=== PATIENT | female | born 1955 | race American Indian/Alaskan Native ===

== ENCOUNTER 2017-12-21 22:54 | Emergency (ER) | payer OTHER ==
--- NOTE | 2017-12-22 00:21 | Emergency Department Report ---
ED General Adult HPI - General Chief complaint: High BP Stated complaint: HYPERTENSION Time Seen by Provider: 12/21/17 23:42 Source: patient, EMS Mode of arrival: Ambulatory Limitations: No Limitations - History of Present Illness Initial comments: 62-year-old female with a past medical history of hypertension and CAD/CABG presents to the hospital complains of fluctuating blood pressure 200 week. Prescribed line with her medicationsstates that sometimes her blood pressure is good and other times it is elevated. When is elevated she feels a crawling sensation all over, feels stressed and has some tingling to her fingers and headache. She does not have any of the symptoms currently. Patient has not been here in several years and her blood pressure does managed by [facility]. Last medication adjustment visit was 4 about 4 months ago. She has an appointment scheduled in February. She has not attempted to follow-up since BP has been fluctuating. She denies chest pain or shortness of breath. She is able to list some of her medications but is not accurately able to recall all of her medications or doses - Related Data Home Medications Medication Instructions Recorded Confirmed Last Taken Lisinopril/Hydrochlorothiazide 25 tab PO BID 11/22/12 09/16/14 09/16/14 07:00 [Zestoretic 20-25 mg] 25 mg Atorvastatin Calcium [Lipitor] 40 mg PO QHS 09/16/14 09/16/14 09/15/14 22:00 Famotidine [Pepcid] 20 mg PO BID 09/16/14 09/16/14 09/16/14 09:00 ISOSORBIDE MONOnitrate [Imdur] 30 mg PO DAILY 09/16/14 09/16/14 09/16/14 09:00 Metoprolol [Lopressor] 12.5 mg PO TID 09/16/14 09/16/14 09/16/14 09:00 12.5 mg Previous Rx's Medication Instructions Recorded Last Taken Type Aspirin [Aspirin BABY CHEW TAB] 81 mg PO QDAY #30 tab.chew 09/18/14 Unknown Rx Allergies Allergy/AdvReac Type Severity Reaction Status Date / Time codeine Allergy Vomiting Verified 11/22/12 03:13 ED Review of Systems ROS: Stated complaint: HYPERTENSION Other details as noted in HPI Comment: All other systems reviewed and negative ED Past Medical Hx - Past Medical History Previous Medical History?: Yes Hx Hypertension: Yes Hx Congestive Heart Failure: No Hx Diabetes: No Hx Asthma: No Hx COPD: No Additional medical history: Hiatal hernia, allergic rhinitis - Surgical History Past Surgical History?: Yes Additional Surgical History: heart bypass - Social History Smoking Status: Never Smoker Substance Use Type: None - Medications Home Medications: Home Medications Medication Instructions Recorded Confirmed Last Taken Type Lisinopril/Hydrochlorothiazide 25 tab PO BID 11/22/12 09/16/14 09/16/14 07:00 History [Zestoretic 20-25 mg] 25 mg Atorvastatin Calcium [Lipitor] 40 mg PO QHS 09/16/14 09/16/14 09/15/14 22:00 History Famotidine [Pepcid] 20 mg PO BID 09/16/14 09/16/14 09/16/14 09:00 History ISOSORBIDE MONOnitrate [Imdur] 30 mg PO DAILY 09/16/14 09/16/14 09/16/14 09:00 History Metoprolol [Lopressor] 12.5 mg PO TID 09/16/14 09/16/14 09/16/14 09:00 History 12.5 mg Aspirin [Aspirin BABY CHEW TAB] 81 mg PO QDAY #30 tab.chew 09/18/14 Unknown Rx ED Physical Exam - General Limitations: No Limitations - Other Other exam information: General: No limitations, patient is alert in no acute distress Head exam: Atraumatic, normocephalic Eyes exam: Normal appearance ENT: Moist mucous membrane Neck exam: Normal inspection, full range of motion, no meningismus nontender Respiratory exam: Clear to auscultation bilateral, no wheezes, rales, crackles Cardiovascular: Normal rate and rhythm, normal heart sounds Abdomen: Soft, nondistended, and nontender, with normal bowel sounds, no rebound, or guarding Extremity: Full range of motion normal inspection no deformity Back: Normal Inspection, full range of motion, no tenderness Neurologic: Alert, oriented x3, cranial nerves intact, no motor or sensory deficit Psychiatric: normal affect, normal mood Skin: Warm, dry, intact ED Course Vital Signs 12/22/17 12/22/17 12/22/17 00:00 00:30 01:25 Temperature 98.1 F Pulse Rate 57 L 55 L Respiratory 20 20 20 Rate Blood Pressure 155/72 161/79 [Right] O2 Sat by Pulse 99 98 98 Oximetry ED Medical Decision Making - Lab Data Result diagrams: 12/22/17 00:20 12/22/17 00:20 Lab Results 12/22/17 12/22/17 Range/Units 00:20 00:20 WBC 7.8 (4.5-11.0) K/mm3 RBC 4.16 (3.65-5.03) M/mm3 Hgb 13.4 (10.1-14.3) gm/dl Hct 37.9 (30.3-42.9) % MCV 91 (79-97) fl MCH 32 (28-32) pg MCHC 35 H (30-34) % RDW 14.4 (13.2-15.2) % Plt Count 153 (140-440) K/mm3 Lymph % (Auto) 30.9 (13.4-35.0) % [place] % (Auto) 7.0 (0.0-7.3) % Eos % (Auto) 1.7 (0.0-4.3) % Baso % (Auto) 0.5 (0.0-1.8) % Lymph # 2.4 (1.2-5.4) K/mm3 [place] # 0.5 (0.0-0.8) K/mm3 Eos # 0.1 (0.0-0.4) K/mm3 Baso # 0.0 (0.0-0.1) K/mm3 Seg Neutrophils % 59.9 (40.0-70.0) % Seg Neutrophils # 4.7 (1.8-7.7) K/mm3 Sodium 146 H (137-145) mmol/L Potassium 3.9 (3.6-5.0) mmol/L Chloride 106.5 (98-107) mmol/L Carbon Dioxide 28 (22-30) mmol/L Anion Gap 15 mmol/L BUN 14 (7-17) mg/dL Creatinine 0.8 (0.7-1.2) mg/dL Estimated GFR > 60 ml/min BUN/Creatinine Ratio 18 % Glucose 127 H (65-100) mg/dL Calcium 9.4 (8.4-10.2) mg/dL - Medical Decision Making Patient mildly elevated in the ED Patient asymptomatic Labs unremarkable I had a long Discussion with patient about the point is to follow-up with her doctor for medication adjustment Recommended follow-up with her manager medical at [facility]. Patient thinks she can walk into clinic Also recommended patient to keep a log of her daily BP measurements so that proper adjustments can be made by her doctors. - Differential Diagnosis hypertensive emergency/urgency,renal insufficiency, stress, anxiety Critical Care Time: No Critical care attestation.: If time is entered above; I have spent that time in minutes in the direct care of this critically ill patient, excluding procedure time. ED Disposition Clinical Impression: Chronic hypertension Disposition: - TO HOME OR SELFCARE Is pt being admited?: No Does the pt Need Aspirin: No Condition: Stable Instructions: Hypertension (ED) Additional Instructions: Continue current medication. Follow-up with the [facility] for further medication adjustment. Continue to monitor and record your briana blood pressure readings as discussed.. Return if symptoms worsen as indicated by your discharge instructions Referrals: PRIMARY CARE, [Primary Care Provider] - 2-3 Days (your [facility]) Time of Disposition: 01:38
[2017-12-22 00:35] LABS: Basophils % (Auto) 0.5 % (0.0-1.8); Eosinophils # (Auto) 0.1 K/mm3 (0.0-0.4); Eosinophils % (Auto) 1.7 % (0.0-4.3); Hematocrit 37.9 % (30.3-42.9); Hemoglobin 13.4 gm/dl (10.1-14.3); Lymphocytes # (Auto) 2.4 K/mm3 (1.2-5.4); Lymphocytes % (Auto) 30.9 % (13.4-35.0); Mean Corpuscular HGB Conc 35 % (30-34); Mean Corpuscular Hemoglobin 32 pg (28-32); Mean Corpuscular Volume 91 fl (79-97); Monocytes # (Auto) 0.5 K/mm3 (0.0-0.8); Platelet Count 153 K/mm3 (140-440); Red Blood Count 4.16 M/mm3 (3.65-5.03); Red Cell Distribution Width 14.4 % (13.2-15.2)
[2017-12-22 00:46] LABS: BUN/Creatinine Ratio 18; Blood Urea Nitrogen 14 mg/dL (7-17); Calcium 9.4 mg/dL (8.4-10.2); Hemolysis Index 8
[2017-12-22 04:19] VITALS: BP 159/82
== END 2017-12-22 03:30 | disposition home or self-care (01) ==
LOC: ED 22:54
DX: I10 Essential (primary) hypertension (principal); Z79.899 Other long term (current) drug therapy; Z88.4 Allergy status to anesthetic agent
CPT/HCPCS: 36415; 80048; 85025

== ENCOUNTER 2019-01-01 02:35 | Emergency (ER) | payer MEDICARE, OTHER ==
[2019-01-01] MEDS ORDERED: IBUPROFEN PO ONE (03:12)
[2019-01-01] MEDS ORDERED: TYLENOL PO ONE (03:12)
--- NOTE | 2019-01-01 03:19 | Emergency Department Report ---
Upper Extremity - HPI Chief Complaint: Neuro Symptoms/Deficit Stated Complaint: HIGH BP Time Seen by Provider: 01/01/19 03:03 Upper Extremity: Left Shoulder, Left Arm Occurred When: >5 Days Mechanism: Unsure Symptoms: Yes Pain with Movement, No Deformity, No Limited Range of Movement, No Numbness, No Weakness, No Swelling, No Bruising/Ecchymosis, No Laceration or Abrasion Other History: This is a 63-year-old female, right-hand dominant, not known to this provider previously. Past history includes heart disease, hypertension and high cholesterol. The patient presents to the ER with a complaint of one week intermittent throbbing left anterior bicep pain, left tricep pain, and left deltoid pain. The pain increases with palpation and range of motion, and it decreases with rest. She reports that she is using electronic devices at home when she gets back from work. She denies heavy lifting. There is no complaint of chest pain, shortness of breath, vomiting, diaphoresis, weakness, numbness or radicular symptoms. She makes no complaint of additional symptoms. She reports that she felt anxious, and therefore presented. The symptoms have been going on intimately for approximately the past 7 days. ED Review of Systems ROS: Stated complaint: HIGH BP Other details as noted in HPI Comment: seehpi Cardiovascular: as per HPI Musculoskeletal: myalgia ED Past Medical Hx - Past Medical History Previous Medical History?: Yes Hx Hypertension: Yes Hx Congestive Heart Failure: No Hx Diabetes: No Hx Asthma: No Hx COPD: No Additional medical history: Hiatal hernia, allergic rhinitis, CAD, Carpal Tunnel Left Hand - Surgical History Hx Open Heart Surgery: Yes Additional Surgical History: heart bypass - Social History Smoking Status: Current Every Day Smoker Substance Use Type: None - Medications Home Medications: Home Medications Medication Instructions Recorded Confirmed Last Taken Type Lisinopril/Hydrochlorothiazide 25 tab PO BID 11/22/12 09/16/14 09/16/14 07:00 History [Zestoretic 20-25 mg] 25 mg Atorvastatin Calcium [Lipitor] 40 mg PO QHS 09/16/14 09/16/14 09/15/14 22:00 History Famotidine [Pepcid] 20 mg PO BID 09/16/14 09/16/14 09/16/14 09:00 History ISOSORBIDE MONOnitrate [Imdur] 30 mg PO DAILY 09/16/14 09/16/14 09/16/14 09:00 History Metoprolol [Lopressor] 12.5 mg PO TID 09/16/14 09/16/14 09/16/14 09:00 History 12.5 mg Aspirin [Aspirin BABY CHEW TAB] 81 mg PO QDAY #30 tab.chew 09/18/14 Unknown Rx Upper Extremity Exam - Exam General: Vital signs noted. No distress. Alert and acting appropriately. Patient appears anxious My extremity exam 2+ pulses noted in the bilateral upper, lower extremities. There is no long bone tenderness. Musculoskeletal compartments are soft. The pelvis is stable. there is no facial droop. The tongue is midline. Extraocular movements are intact bilaterally. Patient speaking in full complete sentences. Shoulder shrug is intact bilaterally. Hearing is grossly intact bilaterally. Visual acuity intact to finger counting and color perception at a close distance. 5/5 strength 4 extremities. Sensation intact to light touch in 4 extremities. Head and Torso: No HEENT Abnormality, No Neck Tenderness, No Chest/Lungs Abnormality, No Abdominal Tenderness, No Back Tenderness Shoulder Exam: Yes Normal Range of Motion in Shoulder, No Shoulder Tenderness, No Clavicle Tenderness, No Shoulder Deformity, No AC Joint Tenderness Arm Exam: No Arm/Humerus Tenderness, No Arm Deformity Elbow: Yes Normal Range of Motion in Elbow, No Elbow Tenderness, No Elbow Deformity Forearm: No Forearm Tenderness, No Forearm Deformity, No Pain with Pronation, No Pain with Supination Wrist: Yes Normal ROM in Wrist, No Wrist Tenderness, No Wrist Deformity, No Snuffbox Tenderness, No Pain with Axial Thumb Compression Hand: Yes Normal ROM in Digit(s), No Hand Tenderness, No Hand Deformity, No Digit Tenderness, No Digit(s) Deformity, No Tendon Dysfunction CMS Exam: Yes Normal Distal Pulses, Yes Normal Capillary Refill, No Broken Skin, No Normal Distal Sensation ED Course Vital Signs 01/01/19 02:45 Temperature 98.4 F Pulse Rate 70 Respiratory 18 Rate Blood Pressure 147/93 O2 Sat by Pulse 98 Oximetry ED Medical Decision Making - Lab Data Vital Signs 01/01/19 02:45 Temperature 98.4 F Pulse Rate 70 Respiratory 18 Rate Blood Pressure 147/93 O2 Sat by Pulse 98 Oximetry - EKG Data -: EKG Interpreted by Pa EKG shows normal: sinus rhythm Rate: normal - EKG Data 01/01/19 03:33 Sinus bradycardia, 55 bpm, normal axis, QTC 391 ms, poor R wave progression, no endorsement of chest pain, the EKG is abnormal, the EKG is not consistent with ST elevation myocardial infarction. Appears grossly unchanged from prior November 2012. - Medical Decision Making Differential diagnosis, including but not limited to: Muscular skeletal pain, anxiety Assessment and plan: 63-year-old female with 1 week of isolated nonradiating left bicep, left tricep and left deltoid pain. There is no complaint of chest pain, shortness of breath, vomiting or diaphoresis. There is no complaint of weakness or change in sensation. The patient has full active and passive range of motion in her bilateral upper extremities. Her exam is not consistent with cellulitis, compartment syndrome, fracture, dislocation. Neurovascular integrity is intact in 4 extremities. The patient's symptoms are treated. The patient does not appear to have an emergent medical condition at this time. Reassurance was provided. Critical care attestation.: If time is entered above; I have spent that time in minutes in the direct care of this critically ill patient, excluding procedure time. ED Disposition Clinical Impression: Left arm pain Disposition: DC-01 TO HOME OR SELFCARE Is pt being admited?: No Does the pt Need Aspirin: No Condition: Stable Additional Instructions: Rest, avoid heavy lifting, and avoid strenuous physical activities. Limit repetitive range of motion in the upper extremities. Patient may take Tylenol, [id number], 650 mg, every 4-6 hours, alternating with Motrin, 600 mg, with food, every 6 hours. Patient may consider alternative therapy, such as acupuncture, massage, alternating heat packs and ice packs. Recommend follow-up with her outpatient primary care doctor within the next month. Return to the emergency room right away with new, worsening, different symptoms not present on the initial emergency room evaluation. Referrals: PRIMARY CARE, [Primary Care Provider] - 3-5 Days
[2019-01-01 03:46] VITALS: BP 164/76
== END 2019-01-01 03:51 | disposition home or self-care (01) ==
LOC: ED 02:35
DX: M79.602 Pain in left arm (principal); I10 Essential (primary) hypertension; F17.200 Nicotine dependence, unspecified, uncomplicated; Z95.1 Presence of aortocoronary bypass graft; Z88.5 Allergy status to narcotic agent; Z79.82 Long term (current) use of aspirin
CPT/HCPCS: 93005; 93010; 99282